=== PATIENT | male | born 1960 | race Caucasian/White ===

== ENCOUNTER 2019-05-27 10:00 | Observation (INO) | payer OTHER ==
[~2019-05-27] VITALS: Ht 180.3 cm; Wt 113.3 kg
[~2019-05-27 10:00] MED LIST: ADULT LOW DOSE81 MG PO; ALTACE5 M1 OR; AMBIEN 10 MG TA10 MG OR; AMBIEN 10 MG TA10 MG PO; AMBIENCR PO; ASPIRIN EC81 M1 PO; ASPIRIN325 OR; COLCHICINE 0.60.6 M1 OR; LANSOPRAZOLE30 MG PO; MELOXICAM7.5 MG PO; NORCO 5-325 TA1 EACH PO; OMEPRAZOLE20 MG PO; PROTONIX40 M2 PO; SIMVASTATIN20 MG PO; SLO-NIACIN500 MG PO; SORINE 80 MG TA80 M1 OR; STRATTERA25 MG PO; TOPROL XL25 MG; XANAX 1 MG TABLE1 MG PO
[2019-05-27 10:03] VITALS: BP 136/116
[2019-05-27 10:31] LABS: ANION GAP 9 mmol/L (7-16); BUN 12 mg/dL (7-18); CALCIUM 9.6 mg/dL (8.5-10.1); CHLORIDE 99 mmol/L (98-107); CO2 26 mmol/L (21-32); CREATININE 1.4 mg/dL (0.7-1.3); GLUCOSE 226 mg/dL (74-106); SODIUM 134 mmol/L (136-145)
[2019-05-27 10:37] LABS: ABSOLUTE NEUTROPHILS 7.9 thou/uL (1.4-8.2); BASOPHILS 1.2 % (0.0-2.0); EOSINOPHILS 1.3 % (0.0-3.0); HEMATOCRIT 50.2 % (42.0-52.0); HEMOGLOBIN 17.4 gm/dL (14.0-18.0); MCH 30.5 pg (26.0-34.0); MCHC 34.7 g/dL (28.0-37.0); MCV 88.1 fL (80.0-100.0); MONOCYTES 5.2 % (1.0-8.0); PLATELET COUNT 287 thou/uL (150-400); POLYS 77.3 % (36.0-66.0); RDW 14.1 % (10.5-14.5); WBC 10.2 thou/uL (4.0-11.0)
[2019-05-27 10:41] LABS: ALBUMIN 4.2 g/dL (3.4-5.0); SGOT 24 U/L (15-37); SGPT 44 U/L (30-65); TOTAL BILIRUBIN 0.5 mg/dL (<0.1-1.0); TOTAL PROTEIN 8.3 g/dL (6.4-8.2); TROPONIN-I <0.06 ng/mL (<0.06)
[2019-05-27 11:39] LABS: BE(vivo) -1.7 mmol/L (-2 to +3); HCO3 23.3 mmol/L (22.0-26.0); PCO2 VENOUS 40.5 mmHg (41.0-51.0); PO2 VENOUS 31.4 mmHg (35.0-45.0)
[2019-05-27 12:54] VITALS: BP 141/109; BP 149/104
--- NOTE | 2019-05-27 13:01 | NUR ---
PER CAREN CARRASQUILLO RN, IS IN A ROOM AND WILL CALL ME BACK
--- NOTE | 2019-05-27 13:41 | NUR ---
ATTEMPTED TO CALL REPORT; NURSE IS DRAWING BLOOD AND WILL CALL BACK WHEN SHE FINISHES
[2019-05-27 14:04] VITALS: BP 152/105
--- NOTE | 2019-05-27 16:01 | EKG ---
[address] [place] [address] ELECTROCARDIOGRAM REPORT Name: PACO BARRAGAN Room #: 349-I [facility] M.R.#: [id number] ������������������ Admission: 05/27/19 ������������������ Attend Phys: Tyrone Rich MD Discharge: ������������������ Date of : 58 Report #: [id number] ����������������������������������������������������������������� [id number] THIS REPORT FOR: //name// [facility] ED Test Date: 2019-05-27 Test Time: 10:15:16 Pat Name: PACO BARRAGAN Department: Room: 349 Gender: M Commander Internal Affairs: Festus CAZARES RN : 1960 Requested By: Kevin Mccarty Order Number: [id number] MD: Leonardo Rai Measurements Intervals [place] Rate: 88 P: 30 MA: 151 QRS: -21 QRSD: 100 T: 73 QT: 374 QTc: 453 Interpretive Statements Sinus rhythm Probable left atrial enlargement Borderline left axis deviation Borderline T wave abnormalities Compared to ECG 01/14/2012 06:39:54 T-wave abnormality now present Sinus arrhythmia no longer present Electronically Signed On 05-27-2019 16:01:07 CDT by Leonardo Rai [email or web address] ��������������������������������������������� <ELECTRONICALLY SIGNED> ���������������������������������������� By: Leonardo Rai MD ��������������������������������������������� 05/27/19 1601 1015 1015 Leonardo Rai MD /EPI
[2019-05-27] MEDS ORDERED: NORVASC5 MG PO (16:10)
[2019-05-27 19:11] VITALS: BP 165/118
--- NOTE | 2019-05-27 19:49 | NUR ---
pt admitted from ER for SOB, pt is A&O X3, pt's SOB has improved, but pt's chest X-RAY results are abnormal, pt requests to go home, RN has called , pt starts IV ABT, if pt finishs IV abt, and vs stable , pt may d/c to home per dr yordy MURO , RN has reported to next shift to keep eye on pt and call dr , if pt request to go home.
[2019-05-27 20:14] VITALS: BP 165/118
[2019-05-27] MEDS ORDERED: CEFDINIR300 MG PO (20:29)
[2019-05-27] MEDS ORDERED: AZITHROMYCIN 2250 MG PO (20:29)
== END 2019-05-27 22:01 | disposition home or self-care (01) ==
LOC: ER 10:00 → EROBS 11:37 → 3W 12:54
PROVIDERS: Emergency Medicine; ADMIT Family Medicine
DX: R06.02 Shortness of breath (principal); R00.2 Palpitations; I10 Essential (primary) hypertension; Z79.899 Other long term (current) drug therapy

== ENCOUNTER 2021-09-24 09:52 | Emergency (ER) | payer OTHER ==
[~2021-09-24] VITALS: Ht 180.3 cm; Wt 106.6 kg
[~2021-09-24 09:52] MED LIST changes: +AZITHROMYCIN 2250 MG PO; +CEFDINIR300 MG PO; +NORVASC5 MG PO
[2021-09-24 10:23] VITALS: BP 163/82
[2021-09-24] MEDS ORDERED: METHOCARBAMOL500 M2 PO (12:47)
[2021-09-24] MEDS ORDERED: PHENERGAN 25 MG25 M1 PO (12:47)
--- NOTE | 2021-09-25 09:43 | EKG ---
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: ISAEL : 1960 Requested By: Aziza Daly Order Number: [id number] MD: Joce Resendiz Measurements Intervals [place] Rate: 69 P: -5 RI: 165 QRS: -7 QRSD: 101 T: 67 QT: 382 QTc: 410 Interpretive Statements Sinus rhythm Borderline T wave abnormality Compared to ECG 05/27/2019 10:15:16 No significant change was found Electronically Signed On 09-25-2021 9:43:17 MECHANICAL DEVELOPMENT ENGINEER by Joce Resendiz [email or web address] <ELECTRONICALLY SIGNED> By: Joce Resendiz MD, [facility] 09/25/21 0943 1003 1003 Joce Resendiz MD, FACC /EPI
== END 2021-09-24 13:40 | disposition home or self-care (01) ==
LOC: ER 09:52
DX: S46.312A Strain of muscle, fascia and tendon of triceps, left arm, initial encounter (principal); M62.838 Other muscle spasm; I25.2 Old myocardial infarction; F12.90 Cannabis use, unspecified, uncomplicated; Z79.899 Other long term (current) drug therapy; X58.XXXA Exposure to other specified factors, initial encounter; Y93.89 Activity, other specified; Y92.89 Other specified places as the place of occurrence of the external cause; Y99.8 Other external cause status